=== PATIENT | male | born 2005 | race African-American/Black ===

== ENCOUNTER 2023-12-14 12:57 | Emergency (ER) | payer OTHER ==
[~2023-12-14] VITALS: Ht 180.3 cm; Wt 89.1 kg
[2023-12-14 16:50] VITALS: BP 163/92; TEMP 97.4; O2SAT 100
== END 2023-12-14 16:52 | disposition home or self-care (01) ==
LOC: M ED 12:57
DX: S40.912A Unspecified superficial injury of left shoulder, initial encounter (principal); W19.XXXA Unspecified fall, initial encounter; F17.200 Nicotine dependence, unspecified, uncomplicated; Y92.9 Unspecified place or not applicable; Y93.B9 Activity, other involving muscle strengthening exercises; Y99.1 Military activity

== ENCOUNTER 2024-02-16 15:56 | Emergency (ER) | payer OTHER ==
[~2024-02-16] VITALS: Ht 180.3 cm; Wt 88.3 kg
[2024-02-16 17:29] LABS: Trichomonas vaginalis (AMP) NOT DETECTED (NEGATIVE)
[2024-02-16 17:32] LABS: HIV 1&2 SCREEN NEGATIVE (NEGATIVE)
[2024-02-16 17:53] LABS: GC DNA AMPLIFICATION NEGATIVE (NEGATIVE)
[2024-02-16 18:14] VITALS: BP 128/76; TEMP 98.3; O2SAT 100
== END 2024-02-16 18:15 | disposition home or self-care (01) ==
LOC: M ED 15:56
DX: R30.0 Dysuria (principal); Z11.3 Encounter for screening for infections with a predominantly sexual mode of transmission